=== PATIENT | female | born 1960 | race Two or more races ===

== ENCOUNTER 2018-10-21 16:11 | Inpatient (IN) | payer MEDICARE ==
[2018-10-21 17:05] LABS: % BASOPHILS 0.7 % (0.0-2.0); % EOSINOPHILS 0.8 % (0.0-5.0); % LYMPHOCYTES 14.6 % (20.0-50.0); % MONOCYTES 4.7 % (2.0-10.0); % NEUTROPHILS 79.2 % (40.0-80.0); BASOPHILE ABSOLUTE 0.1 Th/cumm (0-0.2); EOSINOPHILE ABSOLUTE 0.1 Th/cmm (0.1-0.4); HEMATOCRIT 43.8 % (41.0-60); HEMOGLOBIN 14.4 gm/dL (12-16); LYMPHOCYTE ABSOLUTE 1.3 Th/cmm (1.5-3.0); MEAN CELL VOLUME 93.8 fl (81-100); MEAN CORPUSCULAR HEMOGLOBIN 30.7 pg (27.0-31.0); MEAN CORPUSCULAR HGB CONC 32.8 pg (28.0-36.0); MEAN PLATELET VOLUME 7.3 fl; MONOCYTE ABSOLUTE 0.4 Th/cmm (0.3-1.0); PLATELET COUNT 334 Th/cmm (150-400); RED BLOOD COUNT 4.67 Mil/cmm (3.80-5.10); RED CELL DISTRIBUTION WIDTH 13.2 % (11.5-20.0); WHITE BLOOD COUNT 8.9 Th/cmm (4.8-10.8)
[2018-10-21 17:22] LABS: ALB/GLOB RATIO 1.2 (1.0-1.8); ALBUMIN 3.7 gm/dL (3.7-5.3); ALKALINE PHOSPHATASE 90 U/L (34-104); AMYLASE SERUM 11 U/L (29-103); ANION GAP 24.4 (7.0-16.0); BILIRUBIN,TOTAL 1.7 mg/dL (0.3-1.0); BUN - UREA NITROGEN 18 mg/dL (7-25); CALCIUM SERUM 9.4 mg/dL (8.6-10.3); CARBON DIOXIDE 16.2 mEq/L (21.0-31.0); CHLORIDE 105 mEq/L (98-107); CREATININE - SERUM 0.9 mg/dL (0.6-1.2); GFR AFRICAN-AMERICAN > 60.0 ml/min (>90); GFR NON AFRICAN-AMERICAN > 60.0 ml/min; GLUCOSE 193 mg/dL (70-105); LIPASE 6 U/L (11-82); MAGNESIUM 1.8 mg/dL (1.9-2.7); PHOSPHOROUS 2.9 mg/dL (2.5-5.0); POTASSIUM SERUM 3.6 mEq/L (3.5-5.1); SGOT 10 U/L (13-39); SGPT/ALT 7 U/L (7-52); SODIUM SERUM 142 mEq/L (136-145); TOTAL PROTEIN,SERUM 6.9 gm/dL (6.0-8.3)
--- NOTE | 2018-10-21 19:35 | ED Physician Chart ---
ED Chief Complaint/HPI - Patient Information Date Seen:: 10/21/18 Time Seen:: 19:30 Chief Complaint:: body spasm History of Present Illness:: 58 yr old female from [facility] for body spasm trouble moving says she has trouble wiping herself and requests colostomy Allergies:: Allergies Allergy/AdvReac Type Severity Reaction Status Date / Time codeine Allergy Verified 10/21/18 16:30 metformin Allergy Verified 10/21/18 16:30 Vitals:: Vital Signs - 8 hr 10/21/18 16:40 Temp 98.4 F HR 104 RR 17 BP 162/90 O2 Sat % 99 ED Review of Systems - Review of Systems General/Constitutional: No fever, No chills, No weight loss, No weakness, No diaphoresis, No edema, No loss of appetite Skin: No skin lesions, No rash, No bruising Head: No headache, No light-headedness Eyes: No loss of vision, No pain, No diplopia ENT: No earache, No nasal drainage, No sore throat, No tinnitus Neck: No neck pain, No swelling, No thyromegaly, No stiffness, No mass noted Cardio Vascular: No chest pain, No palpitations, No PND, No orthopnea, No edema Pulmonary: No SOB, No cough, No sputum, No wheezing GI: No nausea, No vomiting, No diarrhea, No pain, No melena, No hematochezia, No constipation, No hematemesis G/U: No dysuria, No frequency, No hematuria Musculoskeletal: No bone or joint pain, No back pain, No muscle pain Endocrine: No polyuria, No polydipsia Psychiatric: No prior psych history, No depression, No anxiety, No suicidal ideation Hematopoietic: No bruising, No lymphadenopathy Allergic/Immuno: No urticaria, No angioedema Neurological: No syncope, No focal symptoms, No weakness, No paresthesia, No headache, No seizure, No dizziness, No confusion, No vertigo ED Past Medical History - Past Medical History Past Medical History: DM, Other (body spasm) ED Physical Exam - Physical Examination General/Constitutional: Awake, Well-developed, well-nourished, Alert, No distress, GCS 15, Non-toxic appearing, Ambulatory Head: Atraumatic Eyes: Lids, conjuctiva normal, PERRL, EOMI Skin: Nl inspection, No rash, No skin lesions, No ecchymosis, Well hydrated, No lymphadenopathy ENMT: External ears, nose nl, Nasal exam nl, Lips, teeth, gums nl Neck: Nontender, Full ROM w/o pain, No JVD, No nuchal rigidity, No bruit, No mass, No stridor Respiratory: Nl effort/Exclusion, Clear to Auscultation, No Wheeze/Rhonchi/Rales Cardio Vascular: RRR, No murmur, gallop, rubs, NL S1 S2 GI: No tenderness/rebounding/guarding, No organomegaly, No hernia, Normal BS's, Nondistended, No mass/bruits, No McBurney tenderness : No CVA tenderness Extremities: No tenderness or effusion, Full ROM, normal strength in all extremities, No edema, Normal digits & nails Neuro/Psych: Alert/oriented, DTR's symmetric, Normal sensory exam, Normal motor strength, Judgement/insight normal, Mood normal, Normal gait, No focal deficits Misc: Normal back, No paraspinal tenderness ED Labs/Radiology/EKG Results - Lab Results Results: Laboratory Tests 10/21/18 10/21/18 10/21/18 16:54 17:00 17:00 WBC 8.9 RBC 4.67 Hgb 14.4 Hct 43.8 MCV 93.8 MCH 30.7 MCHC Differential 32.8 RDW 13.2 Plt Count 334 MPV 7.3 Neutrophils % 79.2 Lymphocytes % 14.6 L Monocytes % 4.7 Eosinophils % 0.8 Basophils % 0.7 Sodium 142 Potassium 3.6 Chloride 105 Carbon Dioxide 16.2 L Anion Gap 24.4 H BUN 18 Creatinine 0.9 Est GFR ( Amer) > 60.0 Est GFR (Non-Af Amer) > 60.0 BUN/Creatinine Ratio 20.0 Glucose 193 H POC Glucose 186 H Calcium 9.4 Phosphorus 2.9 Magnesium 1.8 L Total Bilirubin 1.7 H AST 10 L ALT 7 Alkaline Phosphatase 90 Total Protein 6.9 Albumin 3.7 Globulin 3.2 Albumin/Globulin Ratio 1.2 Amylase 11 L Lipase 6 L Ethyl Alcohol 10/21/18 17:00 WBC RBC Hgb Hct MCV MCH MCHC Differential RDW Plt Count MPV Neutrophils % Lymphocytes % Monocytes % Eosinophils % Basophils % Sodium Potassium Chloride Carbon Dioxide Anion Gap BUN Creatinine Est GFR ( Amer) Est GFR (Non-Af Amer) BUN/Creatinine Ratio Glucose POC Glucose Calcium Phosphorus Magnesium Total Bilirubin AST ALT Alkaline Phosphatase Total Protein Albumin Globulin Albumin/Globulin Ratio Amylase Lipase Ethyl Alcohol < 10 ED Assessment - Assessment General Assessment: body spasm ED Septic Shock - . Is Septic Shock (SBP<90, OR Lactate>4 mmol\L) present?: No - <6hrs of presentation: Vital Signs: Vital Signs - 8 hr 10/21/18 16:40 Temp 98.4 F HR 104 RR 17 BP 162/90 O2 Sat % 99 ED Reassessment (Disposition) - Diagnosis Diagnosis:: 58 yr old female with body spasms requesting colostomy for hygiene purposes so she can clean herself because she can not move around - Patient Disposition Discharge/Transfer:: Acute Care w/in this hosp Admitted to:: Med/Surg Condition at Disposition:: Stable
[2018-10-21 20:24] LABS: URINE SOURCE CLEAN C
[2018-10-21 21:25] LABS: CALCIUM SERUM 9.3 mg/dL (8.6-10.3); MAGNESIUM 1.8 mg/dL (1.9-2.7)
[2018-10-21] MEDS ORDERED: Potassium Chloride 20 mEq ER Tab PO ONE (21:26)
[2018-10-21 21:27] LABS: URINE BILIRUBIN MODERATE (NEGATIVE); URINE BLOOD TRACE (NEGATIVE); URINE GLUCOSE (UA) NEGATIVE (NEGATIVE); URINE KETONE 40 mg/dL (NEGATIVE); URINE LEUKOCYTE ESTERASE NEGATIVE (NEGATIVE); URINE MICROSCOPIC INDICATED? YES; URINE NITRATE NEGATIVE (NEGATIVE); URINE PROTEIN 100 mg/dL (NEGATIVE)
[2018-10-21] MEDS: Potassium Chloride 20 mEq ER Tab PO ONE (21:28)
[2018-10-21 21:41] LABS: BENZODIAZEPINES QUAL URINE POSITIVE (NEGATIVE)
[2018-10-21 21:42] LABS: AMPHETAMINE URINE NEGATIVE (NEGATIVE); BARBITURATES URINE NEGATIVE (NEGATIVE); CANNABINOID THC POSITIVE (NEGATIVE); COCAINE METABOLITE QUAL URINE NEGATIVE (NEGATIVE); METHADONE URINE NEGATIVE (NEGATIVE); METHAMPHETAMINES QUAL URINE NEGATIVE (NEGATIVE); OPIATES (MORPHINE) QUAL. URINE NEGATIVE (NEGATIVE); PHENCYCLIDINE (PCP) URINE NEGATIVE (NEGATIVE); TRICYCLICS (TCA) QUAL. URINE NEGATIVE (NEGATIVE)
[2018-10-21 22:18] LABS: URINE COLOR YELLOW
[2018-10-21 22:19] LABS: URINE CLARITY HAZY (CLEAR)
[2018-10-21 22:20] LABS: URINE BACTERIA MANY /hpf (NONE SEEN); URINE EPITHELIAL CELLS MANY /lpf (FEW); URINE RBC 0-2 /hpf (0-5)
[2018-10-21 22:39] LABS: URINE ICTOTEST NEGATIVE (NEGATIVE)
[2018-10-21] MEDS ORDERED: guaiFENesin 200 MG/10 ML UDC PO PRN (23:21)
[2018-10-21] MEDS ORDERED: Mag Sulfate 2gm/50mL Premix 2 GM/50 ML BAG IV ONE (23:21)
[2018-10-21] MEDS ORDERED: Albuterol Nebulizer 2.5mg/3mL HHN PRN (23:21)
[2018-10-22] MEDS: Sodium Chloride 0.9% 1,000 ML IV SCH ×2 (00:03→21:17)
[2018-10-22] MEDS: Potassium Chloride 20 mEq ER Tab PO ONE (00:05)
[2018-10-22 07:03] LABS: ANION GAP 17.7 (7.0-16.0); BUN - UREA NITROGEN 20 mg/dL (7-25); CALCIUM SERUM 8.7 mg/dL (8.6-10.3); CARBON DIOXIDE 20.5 mEq/L (21.0-31.0); CHLORIDE 107 mEq/L (98-107); CREATININE - SERUM 0.9 mg/dL (0.6-1.2); GFR AFRICAN-AMERICAN > 60.0 ml/min (>90); GFR NON AFRICAN-AMERICAN > 60.0 ml/min; GLUCOSE 165 mg/dL (70-105); MAGNESIUM 2.7 mg/dL (1.9-2.7); POTASSIUM SERUM 4.2 mEq/L (3.5-5.1); SODIUM SERUM 141 mEq/L (136-145)
[2018-10-22] MEDS: INSULIN ASPART, RECOMBINANT 100 UNITS/ML SUBQ SCH ×4 (07:40→21:01)
[2018-10-22] MEDS ORDERED: Non-Formulary Item 1 EA (Glipizide [Glipizide] 10 MG) PO SCH (09:00)
--- NOTE | 2018-10-22 13:36 | History & Physical ---
ADMIT DATE: 10/22/2018 CHIEF COMPLAINT: Constipation, abdominal pain, body spasm. HISTORY OF PRESENT ILLNESS: This is a 58-year-old white female apparently with history of diabetes and a long history of body spasm, unable to walk, bedridden for many, many years. The patient is not a best historian. Denies chest pain or shortness of breath. The patient comes in from home apparently, requesting for a colostomy placement secondary to not able to ____ herself. The patient is not making sense very much. PAST MEDICAL HISTORY: As mentioned in the history of present illness. PAST SURGICAL HISTORY: Denies surgeries. ALLERGIES: CODEINE, METFORMIN. MEDICATIONS: Glipizide. FAMILY HISTORY: Denies diabetes or coronary artery disease. SOCIAL HISTORY: Limited. She is unable to tell whether she smokes. The patient positive for marijuana. The patient lives with parents in the 80s. The patient tells me that she has 6 children. REVIEW OF SYSTEMS: This is limited secondary to comatose state. We will try to obtain more detailed review of system at a later date by talking to family members. There is a mother ____. We will also try to get information of other family members or kids for more information. We will also try to get information from ____, who followed the patient before. Again, there is limited information on this patient as well as a workup that was done previously. PHYSICAL EXAMINATION: VITAL SIGNS: Blood pressure 121/73, respiration 18, pulse 81, temperature 98.9. GENERAL: Elderly female, appears chronically ill. NECK: Supple. LUNGS: Equal breath sounds with few rhonchi. HEART: Regular rate and rhythm without appreciable murmurs. ABDOMEN: Soft, globular. EXTREMITIES: Positive excoriation atrophy. NEUROLOGIC: Decreased motor and sensory in bilateral lower extremity. Gait not seen. LABORATORY DATA: WBC 8.9, hemoglobin 14, platelets 334. Sodium 141, potassium 4.2, BUN 24, creatinine 0.9, blood sugar 186; 183 and 174 last two readings. Magnesium 1.8. Total bilirubin 1.7, amylase and lipase 6 and 7.1. UA showed 10 wbc's, many bacteria, positive 0.1. ASSESSMENT AND PLAN: Urinary tract infection, generalized weakness of unclear etiology; gait stability, body spasm, functional quadriplegia as above, diabetes, hypokalemia marijuana usage, poor historian. We will refer the patient to Neurology; given we have limited information, Dr. Glass may resort to order MRI of the brain and cervical spine. The patient came in with constipation. We will perform a KUB. We may consider last one done on the patient, unclear whether we need endoscopic workup. The patient obviously request for colostomy was premature without manager social services, also consider outpatient physical therapy and respiratory therapy, also try to get more information family members. JOB# [id number]
--- NOTE | 2018-10-22 13:38 | Diagnostic Imaging Report ---
KUB abdominal film (portable) HISTORY: Pain There is a nonspecific gas pattern of nondilated bowel. No free intraperitoneal air. Severe deformity involves the lower pelvis with defects in the ischio regions. These appear chronic. Correlation with patient history needed. IMPRESSION: 1. Nonspecific bowel gas pattern 2. severe deformity about the lower pelvis which appears chronic. Correlation with history needed.
[2018-10-22] MEDS: cefTRIAXone 1 GM in Sodium Chloride 0.9% 50 ML IV SCH (15:00)
[2018-10-23] MEDS: INSULIN ASPART, RECOMBINANT 100 UNITS/ML SUBQ SCH ×4 (07:00→20:47)
[2018-10-23 07:04] LABS: ALB/GLOB RATIO 1.3 (1.0-1.8); ALBUMIN 3.3 gm/dL (3.7-5.3); ALKALINE PHOSPHATASE 88 U/L (34-104); ANION GAP 15.5 (7.0-16.0); BILIRUBIN,DIRECT 0.15 mg/dL (0.0-0.2); BILIRUBIN,TOTAL 1.3 mg/dL (0.3-1.0); BUN - UREA NITROGEN 15 mg/dL (7-25); CALCIUM SERUM 8.5 mg/dL (8.6-10.3); CARBON DIOXIDE 21.3 mEq/L (21.0-31.0); CHLORIDE 108 mEq/L (98-107); CREATININE - SERUM 0.8 mg/dL (0.6-1.2); CREATININE KINASE 383 U/L (30-223); GFR AFRICAN-AMERICAN > 60.0 ml/min (>90); GFR NON AFRICAN-AMERICAN > 60.0 ml/min; GLUCOSE 164 mg/dL (70-105); PHOSPHOROUS 2.7 mg/dL (2.5-5.0); POTASSIUM SERUM 3.8 mEq/L (3.5-5.1); SGOT 12 U/L (13-39); SGPT/ALT 5 U/L (7-52); SODIUM SERUM 141 mEq/L (136-145); TOTAL PROTEIN,SERUM 5.9 gm/dL (6.0-8.3)
[2018-10-23] MEDS: Sodium Chloride 0.9% 1,000 ML IV SCH (10:38)
--- NOTE | 2018-10-23 11:43 | Consultation ---
DATE OF CONSULTATION: 10/22/2018 HISTORY OF PRESENT ILLNESS: A 58-year-old female with complaints of number of complaints. In the Emergency room, she said that she is having spasm. Here, she is not currently having any spasm. She is quite supple actually. She says that sometimes she will get body spasms. She said having difficulty wiping herself. She wants a colostomy. To me, she said that the main problem that she is having problems with legs. Her legs are weak. She cannot walk. Onset seems to be many years. She has both the walker, wheelchair at home. She also notes that she has had some injuries in the past. She had fallen. This goes back to about 2004. She then notes that she has problems where she has pain in the back, pain in the neck. The patient is able to swallow okay. Vision seems to be fine. She is talking okay. PAST MEDICAL HISTORY: Diabetes. MEDICATIONS: As per reconciliation. She is on glipizide, insulin. Zofran. Ambien. REVIEW OF SYSTEMS: As above, otherwise 12-point negative. PHYSICAL EXAMINATION: VITAL SIGNS: 96.9, blood pressure 110/70, pulse is 80. NECK: Supple, no bruits. HEART: Sounds S1, S2. LUNGS: Clear. NEUROLOGIC: She is lying in bed, awake, alert. Speech is okay. Cranial: Pupils reactive to light. Full eye movement, no nystagmus. No facial weakness. NECK: Supple. She can lift her neck up. MOTOR: Upper extremity strength is about 4+/5. Tone seems to be fine. I do not see any rigidity, cogwheeling, or spasticity. Lower extremities, again the tone seems to be okay. She has weakness. She can just about lift the right leg off the bed. Left is about 1 or 2 inches off the bed only. She says sensation reduced in the feet. Reflexes about 1 upper extremity, knees are about 2+ to -3, ankles -1. ASSESSMENT: The patient with number of complaints. Muscle spasms. On exam, I do not see any unless she is having intermittent paroxysmal spasms. We will monitor that. The patient with paraplegia, onset many long time, I do not know the workup she has had. She said she has been told number of things about problems with the spine. The patient with difficulty caring for herself. Gait difficulty. Diabetes. MANAGEMENT: I plan to do an MRI brain, MRI cervical spine, lab studies. Further workup depending on the findings. Recommend physical therapy assessment also. JOB# [id number]
--- NOTE | 2018-10-23 12:40 | Internal Medicine Prog Note ---
Internal Medicine Subjective - Subjective Patient seen and examined:: with staff, chart reviewed Patient is:: awake, verbal, interactive, in bed, talking, confused Patient Complaints of:: congestion, unable to sleep Per staff patient has:: no adverse event, no episodes of fall, poor appetite, agitated, noncompliant, confused, tolerating meds Internal Medicine Objective - Results Result Diagrams: 10/21/18 17:00 10/23/18 05:55 Recent Labs: Laboratory Last Values WBC 8.9 Th/cmm (4.8-10.8) 10/21/18 17:00 RBC 4.67 Mil/cmm (3.80-5.10) 10/21/18 17:00 Hgb 14.4 gm/dL (12-16) 10/21/18 17:00 Hct 43.8 % (41.0-60) 10/21/18 17:00 MCV 93.8 fl (81-100) 10/21/18 17:00 MCH 30.7 pg (27.0-31.0) 10/21/18 17:00 MCHC Differential 32.8 pg (28.0-36.0) 10/21/18 17:00 RDW 13.2 % (11.5-20.0) 10/21/18 17:00 Plt Count 334 Th/cmm (150-400) 10/21/18 17:00 MPV 7.3 fl 10/21/18 17:00 Neutrophils % 79.2 % (40.0-80.0) 10/21/18 17:00 Lymphocytes % 14.6 % (20.0-50.0) L 10/21/18 17:00 Monocytes % 4.7 % (2.0-10.0) 10/21/18 17:00 Eosinophils % 0.8 % (0.0-5.0) 10/21/18 17:00 Basophils % 0.7 % (0.0-2.0) 10/21/18 17:00 ESR 20 mm/hr (0-30) 10/23/18 05:55 Sodium 141 mEq/L (136-145) 10/23/18 05:55 Potassium 3.8 mEq/L (3.5-5.1) 10/23/18 05:55 Chloride 108 mEq/L (98-107) H 10/23/18 05:55 Carbon Dioxide 21.3 mEq/L (21.0-31.0) 10/23/18 05:55 Anion Gap 15.5 (7.0-16.0) 10/23/18 05:55 BUN 15 mg/dL (7-25) 10/23/18 05:55 Creatinine 0.8 mg/dL (0.6-1.2) 10/23/18 05:55 Est GFR ( Amer) > 60.0 ml/min (>90) 10/23/18 05:55 Est GFR (Non-Af Amer) > 60.0 ml/min 10/23/18 05:55 BUN/Creatinine Ratio 18.8 10/23/18 05:55 Glucose 164 mg/dL (70-105) H 10/23/18 05:55 POC Glucose 177 MG/DL (70 - 105) H 10/23/18 11:50 Calcium 8.5 mg/dL (8.6-10.3) L 10/23/18 05:55 Phosphorus 2.7 mg/dL (2.5-5.0) 10/23/18 05:55 Magnesium 2.0 mg/dL (1.9-2.7) 10/23/18 05:55 Total Bilirubin 1.3 mg/dL (0.3-1.0) H 10/23/18 05:55 Direct Bilirubin 0.15 mg/dL (0.0-0.2) 10/23/18 05:55 AST 12 U/L (13-39) L 10/23/18 05:55 ALT 5 U/L (7-52) L 10/23/18 05:55 Alkaline Phosphatase 88 U/L (34-104) 10/23/18 05:55 Ammonia 34 umol/L (16-53) 10/22/18 12:52 Creatine Kinase 383 U/L (30-223) H 10/23/18 05:55 CK-MB (CK-2) 2.1 ng/mL (0.6-6.3) 10/23/18 05:55 C-Reactive Protein 1.5 mg/dL (0.0-0.9) H 10/23/18 05:55 B-Natriuretic Peptide 55.6 pg/mL (5.0-100.0) 10/23/18 05:55 Total Protein 5.9 gm/dL (6.0-8.3) L 10/23/18 05:55 Albumin 3.3 gm/dL (3.7-5.3) L 10/23/18 05:55 Globulin 2.6 gm/dL 10/23/18 05:55 Albumin/Globulin Ratio 1.3 (1.0-1.8) 10/23/18 05:55 Amylase 11 U/L (29-103) L 10/21/18 17:00 Lipase 6 U/L (11-82) L 10/21/18 17:00 TSH 1.79 uIU/ml (0.34-5.60) 10/23/18 05:55 Urine Source CLEAN C 10/21/18 20:14 Urine Color YELLOW 10/21/18 20:14 Urine Clarity HAZY (CLEAR) 10/21/18 20:14 Urine pH 6.0 (4.6 - 8.0) 10/21/18 20:14 Ur Specific [place] >= 1.030 (1.005-1.030) 10/21/18 20:14 Urine Protein 100 mg/dL (NEGATIVE) H 10/21/18 20:14 Urine Glucose (UA) NEGATIVE mg/dL (NEGATIVE) 10/21/18 20:14 Urine Ketones 40 mg/dL (NEGATIVE) H 10/21/18 20:14 Urine Blood TRACE (NEGATIVE) 10/21/18 20:14 Urine Nitrate NEGATIVE (NEGATIVE) 10/21/18 20:14 Urine Bilirubin MODERATE (NEGATIVE) H 10/21/18 20:14 Urine Ictotest NEGATIVE (NEGATIVE) 10/21/18 20:14 Urine Urobilinogen 1.0 E.U./dL (0.2 - 1.0) 10/21/18 20:14 Ur Leukocyte Esterase NEGATIVE (NEGATIVE) 10/21/18 20:14 Urine RBC 0-2 /hpf (0-5) 10/21/18 20:14 Urine WBC 6-10 /hpf (0-5) H 10/21/18 20:14 Ur Epithelial Cells MANY /lpf (FEW) 10/21/18 20:14 Urine Bacteria MANY /hpf (NONE SEEN) H 10/21/18 20:14 Urine Opiates Screen NEGATIVE (NEGATIVE) 10/21/18 20:14 Urine Methadone Screen NEGATIVE (NEGATIVE) 10/21/18 20:14 Ur Barbiturates Screen NEGATIVE (NEGATIVE) 10/21/18 20:14 Ur Tricyclics Screen NEGATIVE (NEGATIVE) 10/21/18 20:14 Ur Phencyclidine Scrn NEGATIVE (NEGATIVE) 10/21/18 20:14 Amphetamines Screen NEGATIVE (NEGATIVE) 10/21/18 20:14 U Methamphetamines Scrn NEGATIVE (NEGATIVE) 10/21/18 20:14 U Benzodiazepines Scrn POSITIVE (NEGATIVE) H 10/21/18 20:14 U Cocaine Metab Screen NEGATIVE (NEGATIVE) 10/21/18 20:14 U Cannabinoids Screen POSITIVE (NEGATIVE) H 10/21/18 20:14 Ethyl Alcohol < 10 mg/dL (0-10) 10/21/18 17:00 - Physical Exam Vitals and I&O: Vital Signs Temp 98.0 F 10/23/18 12:00 Pulse 78 10/23/18 12:00 Resp 17 10/23/18 12:00 BP 119/74 10/23/18 12:00 Pulse Ox 95 10/23/18 12:00 Intake & Output 10/22/18 10/23/18 10/23/18 18:59 06:59 18:59 Intake Total 7885 320 9230 Balance 9541 112 9678 Weight (lbs) 69.853 kg Intake: Intake, IV Amount 1050 1000 Sodium Chloride 0.9% 1, 1000 1000 000 ml @ 100 mls/hr IV . Q10H [facility] Rx#:[id number] cefTRIAXone 1 gm In 50 Sodium Chloride 0.9% 50 ml @ 100 mls/hr IV Q24HR [facility] Rx#:[id number] Oral 150 Other: # Voids 2 # Bowel Movements 1 Weight Source Bedscale Active Medications: Current Medications Acetaminophen (Tylenol) 650 mg PO Q4H PRN PRN Reason: Pain Or Fever above 101 Stop: 12/20/18 23:20 Albuterol Sulfate (Albuterol 2.5mg/3ml Neb Ud) 2.5 mg HHN Q2HRT PRN PRN Reason: Shortness of Breath or Wheeze Stop: 12/20/18 23:20 Baclofen (Lioresal) 5 mg PO TID JULIET Stop: 12/21/18 08:59 Last Admin: 10/23/18 09:10 Dose: 5 mg Glipizide (Glucotrol) 10 mg PO BIDAC [facility] Stop: 12/21/18 07:29 Last Admin: 10/23/18 09:09 Dose: 10 mg Guaifenesin (Robitussin) 200 mg PO Q4HR PRN PRN Reason: Cough or Congestion Stop: 12/20/18 23:20 Sodium Chloride (Nacl 0.9%) 1,000 mls @ 100 mls/hr IV .Q10H [facility] Stop: 12/20/18 23:29 Last Admin: 10/23/18 10:38 Dose: 100 mls/hr Ceftriaxone Sodium 1 gm/ (Sodium Chloride) 50 mls @ 100 mls/hr IV Q24HR [facility] Stop: 12/21/18 13:59 Last Infusion: 10/22/18 15:30 Dose: Infused Insulin Aspart (Novolog) 0 units SUBQ ACHS [facility]; Protocol Stop: 12/21/18 07:29 Last Admin: 10/23/18 11:58 Dose: Not Given Lorazepam (Ativan) 1 mg PO X1 ONE; Protocol Stop: 10/23/18 12:56 Nitroglycerin (Nitrostat) 0.4 mg SL Q5MIN PRN PRN Reason: Chest Pain Stop: 12/20/18 23:20 Ondansetron HCl (Zofran) 4 mg IV Q8H PRN PRN Reason: Nausea / Vomiting Stop: 12/20/18 23:20 Zolpidem Tartrate (Ambien) 10 mg PO HS PRN PRN Reason: Insomnia Stop: 12/20/18 23:20 Last Admin: 10/23/18 02:23 Dose: 10 mg General: weak, disheveled, obese, appears older HEENT: NC/AT, PERRLA, thinning hair, poor dentition Neck: Supple Lungs: congested Cardiovascular: RRR, Normal S1, Normal S2, without murmur Abdomen: soft, non-tender, globular, positive bowel sound Extremities: excoriation, contracture, erythema Neurological: no change, lethargic, disorganized, muscle weakness, unsteady Internal Medicine Assmt/Plan - Assessment Assessment: ASSESSMENT AND PLAN: Urinary tract infection, generalized weakness of unclear etiology; gait stability, body spasm, functional quadriplegia as above, diabetes, hypokalemia marijuana usage, poor historian. We will refer the patient to Neurology; given we have limited information, Dr. Glass may resort to order MRI of the brain and cervical spine. The patient came in with constipation. We will perform a KUB. We may consider last one done on the patient, unclear whether we need endoscopic workup. The patient obviously request for colostomy was premature without social services counselor, also consider outpatient physical therapy and respiratory therapy, also try to get more information family members. - Plan Plan: PLAN: We will refer the patient to Neurology; given we have limited information, Dr. Glass may resort to order MRI of the brain and cervical spine. The patient came in with constipation. We will perform a KUB. unclear whether we need endoscopic workup , also consider physical therapy and respiratory therapy, also try to get more information from family members. cont on iv abx Nutritional Asmnt/Malnutr-PDOC - Dietary Evaluation Malnutrition Findings (Please click <Entered> for more info): Nutritional Asmnt/Malnutrition Start: 10/22/18 13: 18 Text: Status: Active Freq: Protocol: Document 10/22/18 13:18 KARO (Rec: 10/22/18 13:33 KARO [id number]) Nutritional Asmnt/Malnutrition Patient General Information Nutritional Screening High Risk Diagnosis Abd Pain Pertinent Medical Hx/Surgical Hx DM, Body Spasm, Stress fractures in hip due to fall, Bedridden / paraplegia Subjective Information Pt is bedridden d/t broken hip for a few months. Within the last month, she lost the ability to walk to a bathroom in order to relieve herself. The constant embarassment of her mom changing her adult diaper caused her to stop eating so she wouldn't need to defecate. Requesting colostomy. Constipation alleviated by laxatives. Current Diet Order/ Nutrition Support Consistent CHO, 1800 ADA Diet Patient / S.O Not Indicated Pertinent Medications Glipizide, Insulin Aspart, Ondansetron, Ambien Pertinent Labs (10/22) Gluc 165 H, POC Gluc 174 H (trending upward) Nutritional Hx/Data Height 1.63 m Height (Calculated Centimeters) 162.6 Current Weight (lbs) 69.853 kg Weight (Calculated Kilograms) 69.9 Weight (Calculated Grams) 61246.2 [place] Body Weight 120 % [place] Body Weight 128 Body Mass Index (BMI) 26.4 Recent Weight Change Yes Weight Status Overweight GI Symptoms GI Symptoms Constipation Last BM 1 x (10/22) Difficult in: None Cultural/Ethnic/Buddhist Belief None noted Skin Integrity/Comment: Jun risk 15 Current %PO Good (75-100%) Estimated Nutritional Goals BEE in Kcals: Adj wt of IBW Calories/Kcals/Kg 25-30 Kcals Calculated 0974-8010 Protein: Adj wt of IBW Protein g/k.8-1 Protein Calculated 47-59 Fluid: ml 8969-2211 Nutritional Problem 1. Problem Problem Pt has altered nutrition related lab values of hyperglycemia due to Etiology current diet order Signs/Symptoms: (10/22) Gluc 165 H, POC Gluc 174 H (trending upward) Malnutrition Alert Is there a minimum of two criteria No selected? Query Text:Check all the applicable criteria. A minimum of two criteria are recommended for diagnosis of either severe or non-severe malnutrition. Malnutrition Related to Morbid Obesity Malnutrition related to morbid obesity No Intervention/Recommendation Comments Recommend diet change to CCHO- 45gm Expected Outcomes/Goals Expected Outcomes/Goals 1. Maintain PO intake ~100% 2. Glucose Labs to return to WNL 3. F/U as LR in 7 days
--- NOTE | 2018-10-23 12:42 | Consultation ---
DATE OF CONSULTATION: 10/22/2018 INPATIENT GASTROINTESTINAL CONSULT REFERRING PHYSICIAN: Dr. French. REASON FOR CONSULTATION: Change in bowel habits. HISTORY OF PRESENT ILLNESS: This is a 58-year-old female who unfortunately suffered a spinal cord injury that resulted in her lower extremity paralysis. She has been bedridden for almost 10 years and states that she is getting to a point where she cannot care for herself when it comes to bowel movements, has quite a bit accidents and has a hard time keeping clean. She is looking for a colostomy, so that she does not develop any contamination of her low back and that way she can go to the restroom more conveniently. She denies having abdominal pain, nausea, vomiting, GI bleeding, melena, hematochezia, hematemesis, or coffee ground emesis. PAST MEDICAL HISTORY: Diabetes, lower spinal cord injury. PAST SURGICAL HISTORY: None to abdomen. FAMILY HISTORY: Noncontributory. SOCIAL HISTORY: Denies tobacco, alcohol or IV drug usage. ALLERGIES: CODEINE, METFORMIN. CURRENT MEDICATIONS: Tylenol, baclofen, ceftriaxone, glipizide, insulin, Nitrostat, Zofran, Ambien. REVIEW OF SYSTEMS: Ten point review of system was performed and the pertinent positive change in bowel habits and diabetes. All other systems were otherwise negative. PHYSICAL EXAMINATION: VITAL SIGNS: Temperature 98, breathing 18, pulse of 86, blood pressure 154/84, satting 100%. GENERAL: In no apparent distress. HEENT: Eyes: Anicteric. Normal conjunctivae. Normocephalic, atraumatic. Moist mucous membranes. NECK: Soft, supple. CHEST: Clear. No effort. CARDIOVASCULAR: Regular rate and rhythm. ABDOMEN: Soft, nontender, nondistended with an umbilical hernia. SKIN: Warm, dry. EXTREMITIES: Reveal no cyanosis. PSYCHOLOGIC: Alert and oriented x 3. LABORATORY DATA: Show T-bili 1.7, AST 10, ALT 7, alk phos 90, lipase 6. White count is 8.9, hemoglobin 14.4, platelets of 334. IMPRESSION: A 58-year-old female with spinal cord injury, has lower extremity paralysis, cannot move and is looking for a colonostomy due to her inability to care for herself. She also has the change in bowel habits that necessitates her need for having colonoscopy. She has never had a colonoscopy before as well. bilirubin. We can recheck and see the fraction. It could be G Minerva syndrome. PLAN: 1. Check LFTs. 2. Surgical consult per hospitalist PCP to discuss with the patient her options for colostomy long-term given the fact that she can have lower extremity paralysis for some time. 3. Colonoscopy can also be done if she has never been screened for one and this will need to be determined once they settle in on a date for colostomy. Thank you for allowing me to participate. Please call me if any questions. JOB# [id number]
[2018-10-23] MEDS: cefTRIAXone 1 GM in Sodium Chloride 0.9% 50 ML IV SCH (14:56)
[2018-10-24] MEDS: Sodium Chloride 0.9% 1,000 ML IV SCH (03:01)
[2018-10-24] MEDS: INSULIN ASPART, RECOMBINANT 100 UNITS/ML SUBQ SCH ×3 (07:04→16:34)
[2018-10-24 07:10] LABS: FOLIC ACID 5.4 ng/mL (>3.0)
[2018-10-24 07:38] LABS: % BASOPHILS 0.4 % (0.0-2.0); % EOSINOPHILS 1.5 % (0.0-5.0); % LYMPHOCYTES 14.5 % (20.0-50.0); % MONOCYTES 5.6 % (2.0-10.0); EOSINOPHILE ABSOLUTE 0.1 Th/cmm (0.1-0.4); HEMATOCRIT 36.4 % (41.0-60); HEMOGLOBIN 12.3 gm/dL (12-16); MEAN CELL VOLUME 92.1 fl (81-100); MEAN CORPUSCULAR HEMOGLOBIN 31.2 pg (27.0-31.0); MEAN CORPUSCULAR HGB CONC 33.9 pg (28.0-36.0); MEAN PLATELET VOLUME 7.3 fl; MONOCYTE ABSOLUTE 0.4 Th/cmm (0.3-1.0); NEUTROPHILE ABSOLUTE 5.6 Th/cmm (1.8-8.0); PLATELET COUNT 304 Th/cmm (150-400); RED BLOOD COUNT 3.95 Mil/cmm (3.80-5.10); WHITE BLOOD COUNT 7.1 Th/cmm (4.8-10.8)
[2018-10-24 07:53] LABS: ANION GAP 12.4 (7.0-16.0); BUN - UREA NITROGEN 11 mg/dL (7-25); CALCIUM SERUM 8.3 mg/dL (8.6-10.3); CARBON DIOXIDE 23.9 mEq/L (21.0-31.0); CHLORIDE 108 mEq/L (98-107); CREATININE - SERUM 0.8 mg/dL (0.6-1.2); GFR AFRICAN-AMERICAN > 60.0 ml/min (>90); GFR NON AFRICAN-AMERICAN > 60.0 ml/min; GLUCOSE 176 mg/dL (70-105); MAGNESIUM 1.9 mg/dL (1.9-2.7); POTASSIUM SERUM 4.3 mEq/L (3.5-5.1); SODIUM SERUM 140 mEq/L (136-145)
--- NOTE | 2018-10-24 09:15 | Consultation ---
DATE OF CONSULTATION: 10/24/2018 PSYCHIATRIC CONSULT PATIENT'S AGE: 58-year-old. SEX: . PHYSICIAN: Dr. French. EDUCATIONAL ADMINISTRATION TEACHER: Dr. Musa. TYPE OF THE REPORT: Psychiatric consult. REASON FOR THE CONSULT: Depression and diazepam dependency. HISTORY OF PRESENT ILLNESS: The patient is a 58-year-old female who has been using diazepam 10 mg multiple times a day for body spasms. It seems that the patient has been dependent on diazepam. The patient came in because of the body spasm. The patient said that she has been taking diazepam for long time and it seemed that it has not been helping her and she keeps taking more. The patient has been anxious and has been worried because of her need of diazepam. The patient said that she has not been taking any other medications for the spasms. She also denies any treatment in any psychiatric hospital in the past. PAST PSYCHIATRIC HISTORY: The patient denies. PAST MEDICAL HISTORY: The patient complaining of body spasms and constipation. SOCIAL HISTORY: The patient said that she lives with her mother and father. She has five children that are grown up. The patient denies any alcohol or drug use, but she said that she has been taking marijuana from a friend since she stopped taking the diazepam. ALLERGIES: METFORMIN. MENTAL STATUS EXAM: The patient appears her stated age. Anxious. Cooperative. Thought processes are mainly goal directed. The patient denies any auditory or visual hallucinations or delusions. The patient denies any thoughts of suicide or homicide. The patient is alert and oriented to time, place, person, and situation. Intact immediate, recent and remote memories. Fair insight. Fair judgment. Seems to be of average intelligence based on her verbal ability. ASSESSMENT: PRIMARY DIAGNOSIS: Generalized anxiety disorder. SECONDARY DIAGNOSIS: Diazepam use disorder and dependency. TREATMENT PLAN: We will monitor the patient's behavior for any possible withdrawal of diazepam. Also, we will start the patient on gabapentin and will adjust the dose. We will follow up for further recommendations. Thanks to Dr. French and follow up with you. JOB# [id number]
[2018-10-24 12:12] LABS: ANTI-NUCLEAR AB SCREEN Negative
--- NOTE | 2018-10-24 12:41 | GI Progress Note ---
Subjective - Review of Systems Subjective: NO EVENTS Objective - Results Result Diagrams: 10/24/18 07:22 10/24/18 07:22 Recent Labs: Laboratory Last Values WBC 7.1 Th/cmm (4.8-10.8) 10/24/18 07:22 RBC 3.95 Mil/cmm (3.80-5.10) 10/24/18 07:22 Hgb 12.3 gm/dL (12-16) 10/24/18 07:22 Hct 36.4 % (41.0-60) L 10/24/18 07:22 MCV 92.1 fl (81-100) 10/24/18 07:22 MCH 31.2 pg (27.0-31.0) H 10/24/18 07:22 MCHC Differential 33.9 pg (28.0-36.0) 10/24/18 07:22 RDW 13.0 % (11.5-20.0) 10/24/18 07:22 Plt Count 304 Th/cmm (150-400) 10/24/18 07:22 MPV 7.3 fl 10/24/18 07:22 Neutrophils % 78.0 % (40.0-80.0) 10/24/18 07:22 Lymphocytes % 14.5 % (20.0-50.0) L 10/24/18 07:22 Monocytes % 5.6 % (2.0-10.0) 10/24/18 07:22 Eosinophils % 1.5 % (0.0-5.0) 10/24/18 07:22 Basophils % 0.4 % (0.0-2.0) 10/24/18 07:22 ESR 20 mm/hr (0-30) 10/23/18 05:55 Sodium 140 mEq/L (136-145) 10/24/18 07:22 Potassium 4.3 mEq/L (3.5-5.1) 10/24/18 07:22 Chloride 108 mEq/L (98-107) H 10/24/18 07:22 Carbon Dioxide 23.9 mEq/L (21.0-31.0) 10/24/18 07:22 Anion Gap 12.4 (7.0-16.0) 10/24/18 07:22 BUN 11 mg/dL (7-25) 10/24/18 07:22 Creatinine 0.8 mg/dL (0.6-1.2) 10/24/18 07:22 Est GFR ( Amer) > 60.0 ml/min (>90) 10/24/18 07:22 Est GFR (Non-Af Amer) > 60.0 ml/min 10/24/18 07:22 BUN/Creatinine Ratio 13.8 10/24/18 07:22 Glucose 176 mg/dL (70-105) H 10/24/18 07:22 POC Glucose 139 MG/DL (70 - 105) H 10/24/18 06:54 Calcium 8.3 mg/dL (8.6-10.3) L 10/24/18 07:22 Phosphorus 2.7 mg/dL (2.5-5.0) 10/23/18 05:55 Magnesium 1.9 mg/dL (1.9-2.7) 10/24/18 07:22 Total Bilirubin 1.3 mg/dL (0.3-1.0) H 10/23/18 05:55 Direct Bilirubin 0.15 mg/dL (0.0-0.2) 10/23/18 05:55 AST 12 U/L (13-39) L 10/23/18 05:55 ALT 5 U/L (7-52) L 10/23/18 05:55 Alkaline Phosphatase 88 U/L (34-104) 10/23/18 05:55 Ammonia 36 umol/L (16-53) 10/24/18 07:22 Creatine Kinase 383 U/L (30-223) H 10/23/18 05:55 CK-MB (CK-2) 2.1 ng/mL (0.6-6.3) 10/23/18 05:55 C-Reactive Protein 1.5 mg/dL (0.0-0.9) H 10/23/18 05:55 B-Natriuretic Peptide 55.6 pg/mL (5.0-100.0) 10/23/18 05:55 Total Protein 5.9 gm/dL (6.0-8.3) L 10/23/18 05:55 Albumin 3.3 gm/dL (3.7-5.3) L 10/23/18 05:55 Globulin 2.6 gm/dL 10/23/18 05:55 Albumin/Globulin Ratio 1.3 (1.0-1.8) 10/23/18 05:55 Amylase 11 U/L (29-103) L 10/21/18 17:00 Lipase 6 U/L (11-82) L 10/21/18 17:00 Vitamin B12 891 pg/mL (232-1245) 10/23/18 05:55 Folic Acid 5.4 ng/mL (>3.0) 10/23/18 05:55 TSH 1.79 uIU/ml (0.34-5.60) 10/23/18 05:55 Urine Source CLEAN C 10/21/18 20:14 Urine Color YELLOW 10/21/18 20:14 Urine Clarity HAZY (CLEAR) 10/21/18 20:14 Urine pH 6.0 (4.6 - 8.0) 10/21/18 20:14 Ur Specific [place] >= 1.030 (1.005-1.030) 10/21/18 20:14 Urine Protein 100 mg/dL (NEGATIVE) H 10/21/18 20:14 Urine Glucose (UA) NEGATIVE mg/dL (NEGATIVE) 10/21/18 20:14 Urine Ketones 40 mg/dL (NEGATIVE) H 10/21/18 20:14 Urine Blood TRACE (NEGATIVE) 10/21/18 20:14 Urine Nitrate NEGATIVE (NEGATIVE) 10/21/18 20:14 Urine Bilirubin MODERATE (NEGATIVE) H 10/21/18 20:14 Urine Ictotest NEGATIVE (NEGATIVE) 10/21/18 20:14 Urine Urobilinogen 1.0 E.U./dL (0.2 - 1.0) 10/21/18 20:14 Ur Leukocyte Esterase NEGATIVE (NEGATIVE) 10/21/18 20:14 Urine RBC 0-2 /hpf (0-5) 10/21/18 20:14 Urine WBC 6-10 /hpf (0-5) H 10/21/18 20:14 Ur Epithelial Cells MANY /lpf (FEW) 10/21/18 20:14 Urine Bacteria MANY /hpf (NONE SEEN) H 10/21/18 20:14 Urine Opiates Screen NEGATIVE (NEGATIVE) 10/21/18 20:14 Urine Methadone Screen NEGATIVE (NEGATIVE) 10/21/18 20:14 Ur Barbiturates Screen NEGATIVE (NEGATIVE) 10/21/18 20:14 Ur Tricyclics Screen NEGATIVE (NEGATIVE) 10/21/18 20:14 Ur Phencyclidine Scrn NEGATIVE (NEGATIVE) 10/21/18 20:14 Amphetamines Screen NEGATIVE (NEGATIVE) 10/21/18 20:14 U Methamphetamines Scrn NEGATIVE (NEGATIVE) 10/21/18 20:14 U Benzodiazepines Scrn POSITIVE (NEGATIVE) H 10/21/18 20:14 U Cocaine Metab Screen NEGATIVE (NEGATIVE) 10/21/18 20:14 U Cannabinoids Screen POSITIVE (NEGATIVE) H 10/21/18 20:14 Ethyl Alcohol < 10 mg/dL (0-10) 10/21/18 17:00 Rheumatoid Factor <10.0 IU/mL (0.0-13.9) 10/22/18 05:20 OMAR Screen Negative 10/22/18 05:20 - Physical Exam Vitals and I&O: Vital Signs Temp 97.5 F 10/24/18 12:00 Pulse 78 10/24/18 12:00 Resp 18 10/24/18 12:00 BP 128/76 10/24/18 12:00 Pulse Ox 99 10/24/18 12:00 Intake & Output 10/23/18 10/24/18 10/24/18 18:59 06:59 18:59 Intake Total 1500 1000 200 Balance 1500 1000 200 Weight (lbs) 69.853 kg 69.853 kg 69.853 kg Intake: Intake, IV Amount 1000 1000 Sodium Chloride 0.9% 1, 1000 1000 000 ml @ 100 mls/hr IV . Q10H [facility] Rx#:[id number] Oral 500 200 Other: # Voids 2 2 # Bowel Movements 0 1 Weight Source Bedscale Bedscale Bedscale Active Medications: Current Medications Acetaminophen (Tylenol) 650 mg PO Q4H PRN PRN Reason: Pain Or Fever above 101 Stop: 12/20/18 23:20 Albuterol Sulfate (Albuterol 2.5mg/3ml Neb Ud) 2.5 mg HHN Q2HRT PRN PRN Reason: Shortness of Breath or Wheeze Stop: 12/20/18 23:20 Baclofen (Lioresal) 5 mg PO TID [facility] Stop: 12/21/18 08:59 Last Admin: 10/24/18 09:01 Dose: 5 mg Gabapentin (Neurontin) 100 mg PO BID [facility] Stop: 12/23/18 08:59 Last Admin: 10/24/18 09:01 Dose: 100 mg Gabapentin (Neurontin) 300 mg PO HS [facility] Stop: 12/23/18 20:59 Glipizide (Glucotrol) 10 mg PO BIDAC [facility] Stop: 12/21/18 07:29 Last Admin: 10/24/18 06:55 Dose: 10 mg Guaifenesin (Robitussin) 200 mg PO Q4HR PRN PRN Reason: Cough or Congestion Stop: 12/20/18 23:20 Insulin Aspart (Novolog) 0 units SUBQ ACHS [facility]; Protocol Stop: 12/21/18 07:29 Last Admin: 10/24/18 07:04 Dose: Not Given Nitroglycerin (Nitrostat) 0.4 mg SL Q5MIN PRN PRN Reason: Chest Pain Stop: 12/20/18 23:20 Trimethoprim/Sulfamethoxazole (Bactrim Ds) 1 tab PO BID [facility] Stop: 10/29/18 16:59 Zolpidem Tartrate (Ambien) 10 mg PO HS PRN PRN Reason: Insomnia Stop: 12/20/18 23:20 Last Admin: 10/23/18 02:23 Dose: 10 mg Assessment/Plan - Problem List Patient Problems: All Active Problems ABDOMINAL PAIN AND SPASM (Acute) - Assessment Assessment: 58 YO FEMALE WITH CHANGE IN BOWEL HABITS PT IS PARALYZED BELOW THE WAIST AND HAS BOWEL INCONTINENCE NO PRIOR COLO 1.WILL NEED OUTPATIENT SCR COLO 2.CONT SUPP CARE 3.PCP CAN CONSIDER SURGERY EVAL FOR DIVERTING COLOSTOMY
--- NOTE | 2018-10-24 13:07 | Discharge Summary ---
DATE OF DISCHARGE: 10/24/2018 CHIEF COMPLAINT: Constipation, abdominal pain, and bowel spasm. FINAL DIAGNOSES: Urinary tract infection, generalized weakness, spinal cord injury with lower extremity paralysis, gait instability, bowel spasm, functional quadriplegia, hyperkalemia, marijuana usage, and poor historian. HISTORY: This is a 58-year-old female with history of diabetes, apparently with spinal cord injury, unable to walk, bedridden for more than 10 years, admitted for further management. PHYSICAL EXAMINATION: VITAL SIGNS: Blood pressure 130/81, respirations 18, pulse rate of 71, temperature 97.4. GENERAL: Elderly female, appears her stated age. NECK: Supple. No mass. LUNGS: Equal breath sounds, few rhonchi. HEART: Regular rate and rhythm without appreciable murmurs. ABDOMEN: Soft, globular. EXTREMITIES: Positive excoriation. There is decreased motor and sensory in bilateral lower extremity. HOSPITAL COURSE: The patient was admitted to medical floor. The patient was referred to Dr. Glass, he wanted MRI of the head as well as cervical spine, but the patient was taken to the MRI facility, but unable to perform secondary to excessive movement. The patient also referred to Dr. Musa for Psychiatry and diagnosed the patient with generalized anxiety disorder with ____ use disorder and dependency. The patient also referred to GI. The patient was requesting for colostomy secondary to worsening of her symptoms. The instructional consultant elected for outpatient management. We will try to arrange for outpatient MRI of the head and cervical spine, if not CT. The patient to be discharged to care home facility the patient and family is choosing. CONDITION ON DISCHARGE: Fair. DISCHARGE INSTRUCTIONS: The patient will be discharged to a care home facility for continued care and rehabilitation. JOB# [id number]
[2018-10-24] MEDS ORDERED: Sulfamethoxazole/TMP 800/160mg Tab PO SCH (17:00)
[2018-10-25 05:14] LABS: CERULOPLASMIN 20.9 mg/dL (19.0-39.0)
[2018-10-25 09:18] LABS: ALDOLASE 4.1 U/L (3.3-10.3); T4 FREE 1.3 ng/dL (0.82-1.77)
== END 2018-10-24 17:25 | DRG 689 ==
LOC: ER 16:11 → MSI 21:59
PROVIDERS: ADMIT Internal Medicine; ATTEND Internal Medicine
DX: N39.0 Urinary tract infection, site not specified (principal); R53.2 Functional quadriplegia; F13.20 Sedative, hypnotic or anxiolytic dependence, uncomplicated; E87.6 Hypokalemia; E11.9 Type 2 diabetes mellitus without complications; R25.2 Cramp and spasm; R26.9 Unspecified abnormalities of gait and mobility; F12.90 Cannabis use, unspecified, uncomplicated; F41.1 Generalized anxiety disorder; T14.8XXA Other injury of unspecified body region, initial encounter; R32 Unspecified urinary incontinence; Z88.5 Allergy status to narcotic agent; Z74.01 Bed confinement status; Z88.8 Allergy status to other drugs, medicaments and biological substances
CPT/HCPCS: 36415-UA; 74000-TC; 80048-TC; 80053-TC; 80307; 80320-TC; 81001-TC; 82085-90; 82140-TC; 82150-TC; 82248-TC; 82310-TC; 82390-90; 82525-90; 82550-TC; 82553; 82607-90; 82746-90; 82948-90; 83036-90; 83690-TC; 83735-TC; 83880-TC; 84100-TC; 84425-90; 84439-90; 84443-TC; 85025-TC; 85652-TC; 86038-90; 86141-TC; 86430-90; 87086-90; 94760; 97530; J0696; J1815; J3475; J7030; X3904; Z7610